=== PATIENT | female | born 1980 | race Caucasian/White ===

== ENCOUNTER 2017-05-25 14:41 | Emergency (ER) | payer OTHER ==
[2017-05-25] MEDS ORDERED: Marcaine 0.5% SDV 10 ML IJ ONE (14:50)
[2017-05-25] MEDS ORDERED: BACIGUENT PACKET TP ONE (14:50)
[2017-05-25] MEDS ORDERED: Marcaine 0.5% SDV 10 ML ONE (14:52)
[2017-05-25 14:54] VITALS: O2SAT 98
[2017-05-25] MEDS ORDERED: XYLOCAINE 1% HCL 20 ML MDV ONE (15:12)
[2017-05-25] MEDS ORDERED: BACIGUENT PACKET ONE (15:32)
[2017-05-25] MEDS ORDERED: XYLOCAINE 1% HCL 20 ML MDV IJ ONE (15:32)
--- NOTE | 2017-05-25 15:38 | ERPHSYRPT ---
- History of Present Illness Time Seen by Provider: 05/25/17 14:43 Source: patient, other (friend) Patient Subjective Stated Complaint: pt cut right wrist and hand while putting metal in back of truck, Triage Nursing Assessment: pt walked in, anxious ,and hard to redirect pt has triangle laceration that extends for palm of hand to wrist,bleeding , pressure applied.no other injuries Physician History: CC: hand cut hx: 37 y/o patient with no local doctor. She cut her right hand on a piece of metal on a trailer this afternoon prior to arrival. Last tetanus this year and up to date. No allergies and no medications. She drank alcohol today. No other injuries. No N/T/W. Occurred: just prior to arrival Severity of Pain-Max: moderate Severity of Pain-Current: moderate Extremities Pain Location: hand: right Allergies/Adverse Reactions: No Known Drug Allergies Allergy (Verified 05/25/17 14:56) Home Medications: No Home Meds [No Home Meds] 07/17/13 [History] Hx Tetanus, Diphtheria Vaccination/Date Given: Yes (2016) Hx Influenza Vaccination/Date Given: No Hx Pneumococcal Vaccination/Date Given: No Immunizations Up to Date: Yes - Review of Systems Constitutional: No Symptoms Musculoskeletal: Injury (right hand), No Back Pain, No Neck Pain Neurological: No Focal Weakness, No Parasthesia - Past Medical History Pertinent Past Medical History: No Neurological History: No Pertinent History ENT History: No Pertinent History Cardiac History: No Pertinent History Respiratory History: No Pertinent History Endocrine Medical History: No Pertinent History Musculoskeletal History: No Pertinent History GI Medical History: No Pertinent History History: No Pertinent History Psycho-Social History: No Pertinent History Female Reproductive Disorders: No Pertinent History Other Medical History: INTERNAL ABDOMINAL BLEEDING AT AGE 7 SCAR TO ABDOMIN MIDLINE - Past Surgical History Past Surgical History: No Neuro Surgical History: No Pertinent History Cardiac: No Pertinent History Respiratory: No Pertinent History Gastrointestinal: No Pertinent History Genitourinary: No Pertinent History Musculoskeletal: No Pertinent History Female Surgical History: No Pertinent History Other Surgical History: SCAR TO ABDOMEN FROM INTERNAL BLEEDING REPAIR AT AGE 7 - Social History Smoking Status: Current every day smoker How long have you smoked: 20 YEARS Exposure to second hand smoke: Yes Drug Use: none Patient Lives Alone: No - Female History Hx Last Menstrual Period: 5 days ago Hx Now: No - Nursing Vital Signs Nursing Vital Signs: Initial Vital Signs Temperature 97.0 F 05/25/17 14:45 Pulse Rate 86 05/25/17 14:45 Respiratory Rate 20 05/25/17 14:45 Blood Pressure 137/45 05/25/17 14:45 O2 Sat by Pulse Oximetry 98 05/25/17 14:45 Pain Scale Pain Intensity 6 - Physical Exam General Appearance: alert Neck Exam: supple Cardiovascular/Respiratory Exam: regular rate/rhythm Neuro/Tendon Exam: normal sensation, normal motor functions, normal tendon functions, no evidence tendon injury, No motor deficit Mental Status Exam: alert, oriented x 3, cooperative Skin Exam: warm, dry SpO2: 98 Oxygen Delivery: Room Air Comments: Right hand has 8 cm flap laceration thenar area. No deep structure involvement. Good ROM. Opposition intact. No FB noted. Procedures - Laceration/Wound Repair right hand Wound Location: Right, hand Wound Length (cm): 8 Irrigated: Yes (copious saline and washed at sink with irrigation) Hibiclens Prep: Yes Anesthesia: local, 1% Lidocaine (2ml), marcaine 0.5 (6ml) Wound Repaired With: sutures Suture Size/Type: 4-0, prolene Number of Sutures: 11 Layer Closure?: No Sterile Dressing Applied?: Yes Ordered Tests: Active Orders 24 hr Category Date Time Status Wound Care STAT Care 05/25/17 14:50 Active Medication Summary Generic Name Dose Route Start Last Admin Trade Name Freq PRN Reason Stop Dose Admin Lidocaine HCl 5 ml 05/25/17 15:32 Xylocaine 1% Hcl 20 Ml Mdv IJ 05/25/17 15:33 STAT ONE Discontinued Medications Generic Name Dose Route Start Last Admin Trade Name Freq PRN Reason Stop Dose Admin Bacitracin 0.9 gm 05/25/17 14:50 Baciguent Packet TP 05/25/17 14:51 STAT ONE Bupivacaine HCl 5 ml 05/25/17 14:50 Marcaine 0.5% Sdv 10 Ml IJ 05/25/17 14:51 STAT ONE Bupivacaine HCl Confirm 05/25/17 14:52 Marcaine 0.5% Sdv 10 Ml Administered 05/25/17 14:53 Dose 10 ml .ROUTE .STK-MED ONE Lidocaine HCl Confirm 05/25/17 15:12 Xylocaine 1% Hcl 20 Ml Mdv Administered 05/25/17 15:13 Dose 5 ml .ROUTE .STK-MED ONE - Progress Progress Note: 05/25/17 15:38 Wound instr given. Counseled pt/family regarding: diagnosis, need for follow-up - Departure Time of Disposition: 15:38 Departure Disposition: Home Clinical Impression: Laceration of right hand Qualifiers: Encounter type: initial encounter Foreign body presence: without foreign body Qualified Code(s): S61.411A - Laceration without foreign body of right hand, initial encounter Condition: Stable Critical Care Time: No Referrals: DOCTOR,NO FAMILY [Primary Care Provider] - Additional Instructions: LACERATION CARE 1. Do not use peroxide, merthiolate, alcohol, or betadine. 2. Keep wound clean and dry. 3. Change dressing if it becomes wet or soiled. 4. If you must work, wear protective covering. 5. You may return to the emergency department or see your family physician for suture removal. 6. See your family physician or return to the emergency department for any of the following signs or symptoms: A. Redness B. Swelling C. Discolored drainage D. Red streaks E. Elevated temperature F. Other signs of infection Wound check . Suture removal in 10-12 days. Elevate hand.
[2017-05-25 15:51] VITALS: BP 144/100; PULSE 90
== END 2017-05-25 15:53 | disposition home or self-care (01) ==
LOC: ED 14:41
PROC: 0HQFXZZ Repair Right Hand Skin, External Approach (ICD-10-PCS; principal; 2017-05-25)
DX: S61.411A Laceration without foreign body of right hand, initial encounter (principal); W45.8XXA Other foreign body or object entering through skin, initial encounter
CPT/HCPCS: 12004; 99284; A9270-GY

== ENCOUNTER 2018-11-02 05:00 | Emergency (ER) | payer MEDICAID, OTHER ==
[2018-11-02] MEDS ORDERED: Sodium Chloride 0.9% 1000 ML 1,000 ML IV SCH (06:00)
--- NOTE | 2018-11-02 06:10 | ERPHSYRPT ---
- History of Present Illness Source: patient, police Exam Limitations: clinical condition Patient Subjective Stated Complaint: Altered Mental status Triage Nursing Assessment: Patient brought into ED per EMS at this time. Patient was dropped off in [place] and didn't know where she was and knocked on a gentleman's door, which he called police due to patient not acting right. Upon police arriving to the call patient had an altered mental status. Patient Alert, but suspicious of every question asked. Patient talking plainly, but not making sense at this time. Patient denies drug or alcohol use at this moment. Patient has white substance on mouth and states it is toothpaste. Patient carying a small tube of tooth paste. Patient becoming more agitated the more questions this nurse asks. Severity of Symptoms-Max: moderate Severity of Symptoms-Current: moderate Context related to: other (unsure) Associated Symptoms: confused, hallucinating Previous symptoms: recent hospitalization, recently treated Hx Tetanus, Diphtheria Vaccination/Date Given: Yes (2016) Hx Influenza Vaccination/Date Given: Yes Hx Pneumococcal Vaccination/Date Given: No Immunizations Up to Date: Yes <ESTEFANI OLMSTEAD - Last Filed: 11/02/18 06:48> <SHANTI TIJERINA - Last Filed: 11/02/18 15:52> - History of Present Illness Time Seen by Provider: 11/02/18 05:35 Physician History: 38 y/o white female brought in by EMS at the request of law enforcement because pt was knocking on residence doors in the community. police first called. upon arrival pt confused, rambling. pt talking to herself. officer concerned pt may have either a psychiatric or medical issue, EMS called to transfer pt to hospital. here pt refusing intervention, lab draws, evaluation and work up. law enforcement contacted to institute an immediate correction. pt has several unfilled prescriptions with her from recent hospitalization. i reviewed pt evaluation from [facility] dated 10/27/18. similar presentation. cta chest negative. coronary angiography performed during stay there. moderate nonobstructive coronary artery dz. mild to mod reduced left ventricular systolic function. pt reported to [facility] in [place]. with adenosine, pt converted to sinus rhythm. pts troponis were elevated. pt reported to them she was a heavy smoker and uses methamphetamines. additionally , pt has htn (ESTEFANI OLMSTEAD) Allergies/Adverse Reactions: No Known Drug Allergies Allergy (Verified 11/02/18 05:06) Home Medications: No Home Meds [No Home Meds] 07/17/13 [History] - Past Medical History Pertinent Past Medical History: No Neurological History: No Pertinent History ENT History: No Pertinent History Cardiac History: No Pertinent History Respiratory History: No Pertinent History Endocrine Medical History: No Pertinent History Musculoskeletal History: No Pertinent History GI Medical History: No Pertinent History History: No Pertinent History Psycho-Social History: No Pertinent History Female Reproductive Disorders: No Pertinent History Other Medical History: INTERNAL ABDOMINAL BLEEDING AT AGE 7 SCAR TO ABDOMIN MIDLINE - Past Surgical History Past Surgical History: No Neuro Surgical History: No Pertinent History Cardiac: No Pertinent History Respiratory: No Pertinent History Gastrointestinal: No Pertinent History Genitourinary: No Pertinent History Musculoskeletal: No Pertinent History Female Surgical History: No Pertinent History Other Surgical History: SCAR TO ABDOMEN FROM INTERNAL BLEEDING REPAIR AT AGE 7 - Social History Smoking Status: Current every day smoker How long have you smoked: years Exposure to second hand smoke: Yes Drug Use: none Patient Lives Alone: Yes - Female History Hx Last Menstrual Period: 1 week ago Hx Now: No <ESTEFANI OLMSTEAD - Last Filed: 11/02/18 06:48> - Review of Systems Constitutional: No Symptoms Eyes: No Symptoms Ears, Nose, & Throat: No Symptoms Respiratory: No Symptoms Cardiac: No Symptoms Abdominal/Gastrointestinal: No Symptoms Genitourinary Symptoms: No Symptoms Musculoskeletal: No Symptoms Skin: No Symptoms Neurological: No Symptoms Psychological: Anxiety, Hallucinations Endocrine: No Symptoms Hematologic/Lymphatic: No Symptoms Immunological/Allergic: No Symptoms All Other Systems: Reviewed and Negative <ESTEFANI OLMSTEAD - Last Filed: 11/02/18 06:48> - Physical Exam General Appearance: anxiety Eyes, Ears, Nose, Throat Exam: dry mucous membranes Neck Exam: normal inspection, non-tender, supple, full range of motion Neurological Exam: alert, agitated, anxious Appearance: denies illness, disheveled, impaired insight Behavior/Eye Contact/Speech: refused to answer, increased rate of speech, agitated, alert & uncooperative, intoxicated appearance Thoughts/Hallucinations: auditory hallucinations, delusions, visual hallucinations (pt talking to someone not there) Skin Exam: normal color, warm, dry SpO2 Interpretation: normal SpO2: 97 O2 Delivery: Room Air <ESTEFANI OLMSTEAD - Last Filed: 11/02/18 06:48> - Nursing Vital Signs Nursing Vital Signs: Initial Vital Signs Temperature 99.9 F 11/02/18 05:11 Pulse Rate 114 H 11/02/18 05:11 Respiratory Rate 18 11/02/18 05:11 Blood Pressure 184/106 11/02/18 05:11 O2 Sat by Pulse Oximetry 97 11/02/18 05:11 Pain Scale Pain Intensity 0 - Course Nursing assessment & vital signs reviewed: Yes EKG Interpreted by Me: RATE (111), Sinus Rhythm, Sinus Tach, NORMAL AXIS, Other (comparison ekg dated 10/15/18-persistent st depression avf and new sinus tachycardia) <ESTEFANI OLMSTEAD - Last Filed: 11/02/18 06:48> Ordered Tests: Active Orders 24 hr Category Date Time Status Clean Catch Urine Specimen STAT Care 11/02/18 05:54 Active EKG-ER Only STAT Care 11/02/18 05:54 Active IV Insertion STAT Care 11/02/18 05:54 Active Psychiatric Consult STAT Cons 11/02/18 05:55 Active ACETAMINOPHEN Stat Lab 11/02/18 07:05 Completed CBC W DIFF Stat Lab 11/02/18 07:05 Completed CMP Stat Lab 11/02/18 07:05 Completed CULTURE,URINE Stat Lab 11/02/18 14:15 Received D-DIMER QUANTITATION Stat Lab 11/02/18 07:05 Completed ETHYL ALCOHOL Stat Lab 11/02/18 07:05 Completed NT PRO BNP Stat Lab 11/02/18 07:05 Completed SALICYLATE Stat Lab 11/02/18 07:05 Completed TROPONIN Q3H Lab 11/02/18 07:05 Completed UA W/RFX UR CULTURE Stat Lab 11/02/18 14:15 Completed Urine Triage Profile Stat Lab 11/02/18 14:15 Completed Medication Summary Generic Name Dose Route Start Last Admin Trade Name Freq PRN Reason Stop Dose Admin Sodium Chloride 1,000 mls @ 100 mls/hr 11/02/18 06:00 11/02/18 10:39 Sodium Chloride 0.9% 1000 Ml IV 12/02/18 05:59 Not Given .Q10H MARLEN Discontinued Medications Generic Name Dose Route Start Last Admin Trade Name Freq PRN Reason Stop Dose Admin Haloperidol Lactate 5 mg 11/02/18 10:30 11/02/18 10:38 Haldol 5 Mg IM 11/02/18 10:31 5 mg STAT ONE Administration Haloperidol Lactate Confirm 11/02/18 10:32 Haldol 5 Mg Administered 11/02/18 10:33 Dose 5 mg .ROUTE .STK-MED ONE Lorazepam 2 mg 11/02/18 06:29 11/02/18 10:38 Ativan 2 Mg/1 Ml Vial IV 11/02/18 06:30 Not Given STAT ONE Lorazepam 2 mg 11/02/18 10:30 11/02/18 10:38 Ativan 2 Mg/1 Ml Vial IM 11/02/18 10:31 2 mg STAT ONE Administration Lorazepam Confirm 11/02/18 10:32 Ativan 2 Mg/1 Ml Vial Administered 11/02/18 10:33 Dose 2 mg .ROUTE .STK-MED ONE Metoprolol Tartrate 5 mg 11/02/18 06:29 11/02/18 10:39 Lopressor 5 Mg/5 Ml Injection IV 11/02/18 06:30 Not Given STAT ONE Trimethoprim/Sulfamethoxazole 1 tab 11/02/18 15:04 Bactrim Ds Tablet PO 11/02/18 15:05 STAT STA Trimethoprim/Sulfamethoxazole Confirm 11/02/18 15:18 Bactrim Ds Tablet Administered 11/02/18 15:19 Dose 1 tab PO .STK-MED ONE Lab/Rad Data: Laboratory Result Diagrams 11/02/18 07:05 11/02/18 07:05 Laboratory Results 11/02/18 11/02/18 11/02/18 Range/Units 14:15 14:15 07:05 WBC (4.0-10.5) K/mm3 RBC (4.1-5.4) M/mm3 Hgb (12.0-16.0) gm/dl Hct (35-47) % MCV (78-100) fl MCH (26-32) pg MCHC (32-36) g/dl RDW (11.5-14.0) % Plt Count (150-450) K/mm3 MPV (6-9.5) fl Gran % (36.0-66.0) % Eos # (Auto) (0-0.5) Absolute Lymphs (auto) (1.0-4.6) Absolute Monos (auto) (0.0-1.3) Lymphocytes % (24.0-44.0) % Monocytes % (0.0-12.0) % Eosinophils % (0.00-5.0) % Basophils % (0.0-0.4) % Absolute Granulocytes (1.4-6.9) Basophils # (0-0.4) D-Dimer (215-500) ng/mL Sodium (137-145) mmol/L Potassium (3.5-5.1) mmol/L Chloride (98-107) mmol/L Carbon Dioxide (22-30) mmol/L Anion Gap (5-15) MEQ/L BUN (7-17) mg/dL Creatinine (0.52-1.04) mg/dL Estimated GFR ML/MIN Glucose (74-106) mg/dL Calcium (8.4-10.2) mg/dL Total Bilirubin (0.2-1.3) mg/dL AST (14-36) U/L ALT (0-35) U/L Alkaline Phosphatase (38-126) U/L Troponin I 0.213 H* (0.000-0.034) ng/mL NT-Pro-B Natriuret Pep (0-450) pg/mL Serum Total Protein (6.3-8.2) g/dL Albumin (3.5-5.0) g/dL Urine Color YELLOW (YELLOW) Urine Appearance CLOUDY (CLEAR) Urine pH 5.0 (5-6) Ur Specific [place] 1.025 (1.005-1.025) Urine Protein NEGATIVE (Negative) Urine Ketones NEGATIVE (NEGATIVE) Urine Blood LARGE (0-5) Mikel/ul Urine Nitrite NEGATIVE (NEGATIVE) Urine Bilirubin NEGATIVE (NEGATIVE) Urine Urobilinogen NEGATIVE (0-1) mg/dL Ur Leukocyte Esterase TRACE (NEGATIVE) Urine WBC (Auto) 11-15 (0-5) /HPF Urine RBC (Auto) >101 (0-2) /HPF U Epithel Cells (Auto) RARE (FEW) /HPF Urine Bacteria (Auto) FEW (NEGATIVE) /HPF Urine Mucus (Auto) SLIGHT (NEGATIVE) /HPF Urine Culture Reflexed YES (NO) Urine Glucose NEGATIVE (NEGATIVE) mg/dL Salicylates (2-20) mg/dL Urine Opiates Level NEGATIVE (NEGATIVE) Ur Methadone NEGATIVE (NEGATIVE) Acetaminophen (10-30) ug/ml Urine Barbiturates NEGATIVE (NEGATIVE) Ur Phencyclidine (PCP) NEGATIVE (NEGATIVE) Urine Amphetamine POSITIVE (NEGATIVE) U Benzodiazepine Level NEGATIVE (NEGATIVE) Urine Cocaine NEGATIVE (NEGATIVE) Urine Marijuana (THC) POSITIVE (NEGATIVE) Ethyl Alcohol (0-10) mg/dL 11/02/18 11/02/18 11/02/18 Range/Units 07:05 07:05 07:05 WBC (4.0-10.5) K/mm3 RBC (4.1-5.4) M/mm3 Hgb (12.0-16.0) gm/dl Hct (35-47) % MCV (78-100) fl MCH (26-32) pg MCHC (32-36) g/dl RDW (11.5-14.0) % Plt Count (150-450) K/mm3 MPV (6-9.5) fl Gran % (36.0-66.0) % Eos # (Auto) (0-0.5) Absolute Lymphs (auto) (1.0-4.6) Absolute Monos (auto) (0.0-1.3) Lymphocytes % (24.0-44.0) % Monocytes % (0.0-12.0) % Eosinophils % (0.00-5.0) % Basophils % (0.0-0.4) % Absolute Granulocytes (1.4-6.9) Basophils # (0-0.4) D-Dimer 485 (215-500) ng/mL Sodium 139 (137-145) mmol/L Potassium 4.3 (3.5-5.1) mmol/L Chloride 102 (98-107) mmol/L Carbon Dioxide 25 (22-30) mmol/L Anion Gap 16.4 H (5-15) MEQ/L BUN 27 H (7-17) mg/dL Creatinine 0.88 (0.52-1.04) mg/dL Estimated GFR > 60.0 ML/MIN Glucose 115 H (74-106) mg/dL Calcium 10.3 H (8.4-10.2) mg/dL Total Bilirubin 0.60 (0.2-1.3) mg/dL AST 31 (14-36) U/L ALT 45 H (0-35) U/L Alkaline Phosphatase 72 (38-126) U/L Troponin I (0.000-0.034) ng/mL NT-Pro-B Natriuret Pep 1040 H (0-450) pg/mL Serum Total Protein 7.9 (6.3-8.2) g/dL Albumin 4.5 (3.5-5.0) g/dL Urine Color (YELLOW) Urine Appearance (CLEAR) Urine pH (5-6) Ur Specific [place] (1.005-1.025) Urine Protein (Negative) Urine Ketones (NEGATIVE) Urine Blood (0-5) Mikel/ul Urine Nitrite (NEGATIVE) Urine Bilirubin (NEGATIVE) Urine Urobilinogen (0-1) mg/dL Ur Leukocyte Esterase (NEGATIVE) Urine WBC (Auto) (0-5) /HPF Urine RBC (Auto) (0-2) /HPF U Epithel Cells (Auto) (FEW) /HPF Urine Bacteria (Auto) (NEGATIVE) /HPF Urine Mucus (Auto) (NEGATIVE) /HPF Urine Culture Reflexed (NO) Urine Glucose (NEGATIVE) mg/dL Salicylates < 1.0 L (2-20) mg/dL Urine Opiates Level (NEGATIVE) Ur Methadone (NEGATIVE) Acetaminophen < 10 L (10-30) ug/ml Urine Barbiturates (NEGATIVE) Ur Phencyclidine (PCP) (NEGATIVE) Urine Amphetamine (NEGATIVE) U Benzodiazepine Level (NEGATIVE) Urine Cocaine (NEGATIVE) Urine Marijuana (THC) (NEGATIVE) Ethyl Alcohol < 10 (0-10) mg/dL 11/02/18 Range/Units 07:05 WBC 11.2 H (4.0-10.5) K/mm3 RBC 4.02 L (4.1-5.4) M/mm3 Hgb 13.3 (12.0-16.0) gm/dl Hct 40.1 (35-47) % MCV 99.8 (78-100) fl MCH 33.0 H (26-32) pg MCHC 33.2 (32-36) g/dl RDW 13.3 (11.5-14.0) % Plt Count 381 (150-450) K/mm3 MPV 9.6 H (6-9.5) fl Gran % 75.6 H (36.0-66.0) % Eos # (Auto) 0.05 (0-0.5) Absolute Lymphs (auto) 1.71 (1.0-4.6) Absolute Monos (auto) 0.97 (0.0-1.3) Lymphocytes % 15.2 L (24.0-44.0) % Monocytes % 8.6 (0.0-12.0) % Eosinophils % 0.4 (0.00-5.0) % Basophils % 0.2 (0.0-0.4) % Absolute Granulocytes 8.49 H (1.4-6.9) Basophils # 0.02 (0-0.4) D-Dimer (215-500) ng/mL Sodium (137-145) mmol/L Potassium (3.5-5.1) mmol/L Chloride (98-107) mmol/L Carbon Dioxide (22-30) mmol/L Anion Gap (5-15) MEQ/L BUN (7-17) mg/dL Creatinine (0.52-1.04) mg/dL Estimated GFR ML/MIN Glucose (74-106) mg/dL Calcium (8.4-10.2) mg/dL Total Bilirubin (0.2-1.3) mg/dL AST (14-36) U/L ALT (0-35) U/L Alkaline Phosphatase (38-126) U/L Troponin I (0.000-0.034) ng/mL NT-Pro-B Natriuret Pep (0-450) pg/mL Serum Total Protein (6.3-8.2) g/dL Albumin (3.5-5.0) g/dL Urine Color (YELLOW) Urine Appearance (CLEAR) Urine pH (5-6) Ur Specific [place] (1.005-1.025) Urine Protein (Negative) Urine Ketones (NEGATIVE) Urine Blood (0-5) Mikel/ul Urine Nitrite (NEGATIVE) Urine Bilirubin (NEGATIVE) Urine Urobilinogen (0-1) mg/dL Ur Leukocyte Esterase (NEGATIVE) Urine WBC (Auto) (0-5) /HPF Urine RBC (Auto) (0-2) /HPF U Epithel Cells (Auto) (FEW) /HPF Urine Bacteria (Auto) (NEGATIVE) /HPF Urine Mucus (Auto) (NEGATIVE) /HPF Urine Culture Reflexed (NO) Urine Glucose (NEGATIVE) mg/dL Salicylates (2-20) mg/dL Urine Opiates Level (NEGATIVE) Ur Methadone (NEGATIVE) Acetaminophen (10-30) ug/ml Urine Barbiturates (NEGATIVE) Ur Phencyclidine (PCP) (NEGATIVE) Urine Amphetamine (NEGATIVE) U Benzodiazepine Level (NEGATIVE) Urine Cocaine (NEGATIVE) Urine Marijuana (THC) (NEGATIVE) Ethyl Alcohol (0-10) mg/dL <ESTEFANI OLMSTEAD - Last Filed: 11/02/18 06:48> - Progress Discussed with Dr.: Other (DISCUSSED WITH DR BROWN AT 1414 ACCEPTS TRANSFER TO [facility] ) <SHANTI TIJERINA - Last Filed: 11/02/18 15:52> - Progress Progress Note: 11/02/18 06:32 pt now allowing workup to progress transfer of care to dr. tijerina at 0700 (ESTEFANI OLMSTEAD) PATIENT YELLING SCREAMING WITH FLIGHT OF IDEAS, AUDITORY HALLUCINATIONS, ADMINISTERED HALDOL 5MG, ATIVAN 2MG IM, 11/02/18 11:03, [facility] COMPLETED FACE TO FACE INTERVIEW WITH PATIENT FOR PLACEMENT 11/02/18 11:11 11/02/18 11:15 (SHANTI TIJERINA) <ESTEFANI OLMSTEAD - Last Filed: 11/02/18 06:48> - Departure Departure Disposition: Transfer Critical Care Time: No <SHANTI TIJERINA - Last Filed: 11/02/18 15:52> - Departure Clinical Impression: ACUTE PSYCHOSIS, SUBSTANCE ABUSE, URINARY TRACT INFECTION Condition: Stable Referrals: DOCTOR,NO FAMILY [Primary Care Provider] -
[2018-11-02] MEDS ORDERED: LOPRESSOR 5 MG/5 ML INJECTION IV ONE (06:29)
[2018-11-02] MEDS ORDERED: Ativan 2 MG/1 ML VIAL IV ONE (06:29)
[2018-11-02 07:10] LABS: BASOPHIL % 0.2 % (0.0-0.4); Basophil (Absolute #) 0.02 (0-0.4); Eosinophil % 0.4 % (0.00-5.0); Eosinophil (Absolute #) 0.05 (0-0.5); Granulocyte Absolute (ANC) 8.49 (1.4-6.9); Granulocytes % 75.6 % (36.0-66.0); Hematocrit 40.1 % (35-47); Hemoglobin 13.3 gm/dl (12.0-16.0); Lymphocyte (Absolute #) 1.71 (1.0-4.6); Lymphocytes % 15.2 % (24.0-44.0); Mean Cell Volume 99.8 fl (78-100); Mean Corpuscular Hgb Concent. 33.2 g/dl (32-36); Mean Platelet Volume 9.6 fl (6-9.5); Monocyte (Absolute #) 0.97 (0.0-1.3); Monocytes % 8.6 % (0.0-12.0); Platelet Count 381 K/mm3 (150-450); Red Blood Count 4.02 M/mm3 (4.1-5.4); Red Cell Distribution Width 13.3 % (11.5-14.0); White Blood Count 11.2 K/mm3 (4.0-10.5)
[2018-11-02 07:22] LABS: ALBUMIN 4.5 g/dL (3.5-5.0); ALKALINE PHOSPHATASE 72 U/L (38-126); ANION GAP 16.4 MEQ/L (5-15); BLOOD UREA NITROGEN 27 mg/dL (7-17); CHLORIDE 102 mmol/L (98-107); Calcium 10.3 mg/dL (8.4-10.2); Carbon Dioxide 25 mmol/L (22-30); Creatinine 1 0.88 mg/dL (0.52-1.04); Glucose 115 mg/dL (74-106); Potassium 4.3 mmol/L (3.5-5.1); SGOT/AST 31 U/L (14-36); SGPT/ALT 45 U/L (0-35); SODIUM 139 mmol/L (137-145); Total Protein 7.9 g/dL (6.3-8.2)
[2018-11-02 07:30] LABS: ACETAMINOPHEN < 10 ug/ml (10-30); ETHYL ALCOHOL < 10 mg/dL (0-10); SALICYLATE < 1.0 mg/dL (2-20)
[2018-11-02] MEDS ORDERED: Ativan 2 MG/1 ML VIAL IM ONE (10:30)
[2018-11-02] MEDS ORDERED: Haldol 5 MG IM ONE (10:30)
[2018-11-02] MEDS ORDERED: Ativan 2 MG/1 ML VIAL ONE (10:32)
[2018-11-02] MEDS ORDERED: Haldol 5 MG ONE (10:32)
[2018-11-02 14:33] LABS: Appearance CLOUDY (CLEAR); Bacteria FEW /HPF (NEGATIVE); Bilirubin NEGATIVE (NEGATIVE); Blood LARGE Ery/ul (0-5); Epithelial Cells RARE /HPF (FEW); Glucose NEGATIVE (NEGATIVE); Ketones NEGATIVE (NEGATIVE); Leukocyte Esterase TRACE (NEGATIVE); Mucus SLIGHT /HPF (NEGATIVE); Nitrite NEGATIVE (NEGATIVE); Protein,Urine Dip NEGATIVE (Negative); RBC >101 /HPF (0-2); Specific Gravity 1.025 (1.005-1.025); Urobilinogen NEGATIVE mg/dL (0-1)
[2018-11-02 14:37] VITALS: BP 126/63; PULSE 74; O2SAT 100
[2018-11-02 14:45] LABS: Barbiturate,Urine NEGATIVE (NEGATIVE); Benzodiazepine,Urine NEGATIVE (NEGATIVE); Cocaine,Urine NEGATIVE (NEGATIVE); Methadone,Urine NEGATIVE (NEGATIVE); Opiate,Urine NEGATIVE (NEGATIVE); PCP,Urine NEGATIVE (NEGATIVE); THC,Urine POSITIVE (NEGATIVE)
[2018-11-02] MEDS ORDERED: BACTRIM DS TABLET PO STA (15:04)
[2018-11-02 15:14] LABS: Amphetamine,Urine POSITIVE (NEGATIVE)
[2018-11-02] MEDS ORDERED: BACTRIM DS TABLET PO ONE (15:18)
== END 2018-11-02 16:16 | disposition short-term general hospital (02) ==
LOC: ED 05:00
DX: F23 Brief psychotic disorder (principal); F19.10 Other psychoactive substance abuse, uncomplicated; N39.0 Urinary tract infection, site not specified
CPT/HCPCS: 36415; 80053; 80307; 81001; 83880; 84484; 85025; 85379; 87086; 90791; 93005; 96372; 99285; G0481; Q3014; J1630; J2060; A9270-GY; G0480